=== PATIENT | female | born 1990 | race Caucasian/White ===

== ENCOUNTER 2024-08-09 23:23 | Emergency (ER) | payer MEDICAID ==
[~2024-08-09] VITALS: Ht 154.9 cm; Wt 45.5 kg
[2024-08-09 23:43] VITALS: BP 133/91; PULSE 74; RESP 18; TEMP 97.7; O2SAT 98
== END 2024-08-10 00:14 | disposition home or self-care (01) ==
LOC: EMS 23:23
DX: S29.012A Strain of muscle and tendon of back wall of thorax, initial encounter (principal); Z02.89 Encounter for other administrative examinations; V89.2XXA Person injured in unspecified motor-vehicle accident, traffic, initial encounter; Y93.89 Activity, other specified; Y92.89 Other specified places as the place of occurrence of the external cause; Y99.8 Other external cause status
CPT/HCPCS: 99283; Z7502